=== PATIENT | female | born 1985 | race Caucasian/White ===

== ENCOUNTER 2019-09-21 12:48 | Emergency (ER) | payer OTHER, SELFPAY ==
[2019-09-21 12:57] VITALS: BP 131/77; PULSE 117; RESP 20; TEMP 38.1; O2SAT 99
--- NOTE | 2019-09-21 13:14 | ED.URI ---
HPI - URI/Sore Throat General Chief Complaint: Upper Respiratory Infection Stated Complaint: cough/sore throat/ear pain/sinus issues Time Seen by Provider: 09/21/19 13:15 Source: patient Mode of arrival: ambulatory Limitations: no limitations History of Present Illness HPI Narrative: Brenden Tanner is a 33 yo female with a prior medical history of PCOS who came to our urgent care with coughing, fever, body aches, difficulty swallowing, nasal congestion for the past 5 days. Did not get a flu vaccine. Had vomiting that stopped 2 days ago Related Data Allergies Allergy/AdvReac Type Severity Reaction Status Date / Time clarithromycin Allergy Unknown Verified 07/24/13 11:06 Sulfa (Sulfonamide Allergy Unknown Verified 07/24/13 11:06 Antibiotics) Review of Systems Review of Systems: Narrative: CONSTITUTIONAL: has fever, chills, sweats. EYES: Denies visual changes, redness, discharge. ENT: has rhinorrhea, congestion, sore throat, no otalgia. CARDIOVASCULAR: Denies chest pain, palpitations, edema. RESPIRATORY: Denies dyspnea, wheezing, dry cough GASTROINTESTINAL: Denies abdominal pain, nausea, vomiting, diarrhea. GENITOURINARY: Denies dysuria, hematuria, abnormal discharge SKIN: Denies rash or itching. MUSCULOSKELETAL: Denies acute back pain, joint pain, or myalgia. NEUROLOGIC: Denies numbness, or focal weakness. PSYCHIATRIC: Denies anxiety or depression. [facility] Family History Family History (Updated 09/21/19 @ 13:18 by Emilia Haley CNP) Other No active medical problems Social History Social History (Updated 09/21/19 @ 13:18 by Emilia Haley CNP) Smoking status: Never smoker Alcohol intake: never Comments At time of signature, I agree with nursing past medical, surgical, social and family history. There is no relevant family history pertinent to the presenting complaint. Exam Narrative: Exam Narrative: GENERAL: This is a well-nourished, well-developed patient, febrile, in moderate distress. HEAD: normocephalic, atraumatic. EYES: Sclera clear/white. Vision is grossly intact. EARS: External ears normal, auditory canals erythema and without drainage, TMs normal without perforation. Hearing grossly intact. NOSE: External nose normal with nasal discharge, nares with redness, has rhinorrhea. THROAT: Mucous membranes moist, posterior pharynx erythema, no edema NECK: Neck supple, non-tender without lymphadenopathy, CARDIOVASCULAR: Tachycardic and rhythm without murmurs, gallops, or rubs. RESPIRATORY: Clear to auscultation. Breath sounds equal bilaterally. No wheezes, rales, or rhonchi. GASTROINTESTINAL: Abdomen soft, non-tender, nondistended. SKIN: warm, intact with no suspicious lesions or rash, good texture and turgor. NEURO: awake, alert, and oriented to person, place and time. There were no obvious focal neurologic abnormalities. Steady gait EXTREMITIES: Normal range of motion. No edema. BACK: Nontender without deformity or crepitance. Course Course Emergency Course: Toradol IM for fever and pain Started on prednisone Mucinex and codeine cough syrup. Flonase, Claritin. Discussed hydration rotation of Tylenol and ibuprofen for temperature myalgia. Vital Signs Vital signs: Vital Signs Temperature 100.6 F H 09/21/19 12:57 Pulse Rate 117 H 09/21/19 12:57 Respiratory Rate 09/21/19 12:57 Blood Pressure 131/77 09/21/19 12:57 Pulse Oximetry 99 09/21/19 12:57 Temperature 100.6 F H 09/21/19 12:57 Pulse Rate 117 H 09/21/19 12:57 Respiratory Rate 20 09/21/19 12:57 Blood Pressure 131/77 09/21/19 12:57 Pulse Oximetry 99 09/21/19 12:57 MDM - URI/Sore Throat Differential Diagnosis Differential diagnosis: Likely upper respiratory infection, sinusitis and influenza Discharge Plan Discharge Clinical Impression: Upper respiratory infection Qualifiers: URI type: unspecified viral URI Qualified Code(s): J06.9 - Acute upper respiratory infection, unspecified Con
[2019-09-21] MEDS: KETOROLAC (*BKC) 60 MG/2 ML VIAL IM (13:21)
== END 2019-09-21 14:01 | disposition home or self-care (01) ==
PROVIDERS: Emergency Provider Nurse Practitioner
DX: J06.9 Acute upper respiratory infection, unspecified (principal); E28.2 Polycystic ovarian syndrome; J45.990 Exercise induced bronchospasm
CPT/HCPCS: 96372; 99213; G0463; J1885

== ENCOUNTER 2019-12-11 17:47 | Emergency (ER) | payer OTHER, SELFPAY ==
--- NOTE | ~2019-12-11 | CT_ITS ---
EXAMINATION: CT cervical spine [facility] EXAM DATE: 12/11/2019 18:54 INDICATION: Neck pain radiating down right arm. TECHNIQUE: Spiral CT of the cervical spine was performed without contrast. Axial images were reviewe d. Coronal and sagittal reformatted images were also reviewed. The dose-length product (DLP) for thi s examination was 557.99 mGy-cm. The exposure was tailored according to patient size (auto mA exposu re control), and iterative reconstruction (ASIR) was used as additional dose reduction technique. ere is no prior study for comparison. FINDINGS: There is moderate reversal of the normal cervical lordosis which may be positional or spasm . The vertebral bodies are aligned in the AP dimension. Vertebral body and disc heights are well-main tained. There are no acute fractures identified. The odontoid process is intact. The lateral masses of C1 line up with C2. Paraspinal soft tissue is unremarkable. Level by level evaluation: C2-C3: Disc does not extend beyond the endplate margin. Uncovertebral joint arthropathy: Mild bilateral. Facet joint arthropathy: Mild to moderate right, mild left. Neural foraminal stenosis: Mild to moderate right, mild left. Central canal stenosis: No stenosis. C3-C4: Disc does not extend beyond the endplate margin. Uncovertebral joint arthropathy: Mild to moderate right, mild left. Facet joint arthropathy: Mild bilateral. Neural foraminal stenosis: Moderate right, mild to moderate left. Central canal stenosis: No stenosis. C4-C5: Disc does not extend beyond the endplate margin. Uncovertebral joint arthropathy: Mild bilateral. Facet joint arthropathy: Minimal bilateral. Neural foraminal stenosis: No stenosis. Central canal stenosis: No stenosis. C5-C6: Disc does not extend beyond the endplate margin. Uncovertebral joint arthropathy: None. Facet joint arthropathy: None. Neural foraminal stenosis: No stenosis. Central canal stenosis: No stenosis. C6-C7: Disc does not extend beyond the endplate margin. Uncovertebral joint arthropathy: None. Facet joint arthropathy: None. Neural foraminal stenosis: No stenosis. Central canal stenosis: No stenosis. C7-T1: Disc does not extend beyond the endplate margin. Uncovertebral joint arthropathy: None. Facet joint arthropathy: None. Neural foraminal stenosis: No stenosis. Central canal stenosis: No stenosis. IMPRESSION: 1. Reversal of normal cervical lordosis, consider spasm. 2. Upper cervical predominant arthropathy with up to moderate right neural foraminal stenosis, at th e C3-4 level. Reviewed, dictated and finalized at location A. IMPRESSION: 1. Reversal of normal cervical lordosis, consider spasm. 2. Upper cervical predominant arthropathy with up to moderate right neural for aminal stenosis, at the C3-4 level.
[2019-12-11 17:51] VITALS: BP 132/83; PULSE 101; RESP 20; TEMP 36.2; O2SAT 100
--- NOTE | 2019-12-11 19:14 | ED.GENADULT ---
HPI - General Adult General Chief complaint: Extremity Injury, Upper Stated complaint: R ARM PAIN Time Seen by Provider: 12/11/19 17:59 Source: patient and family Mode of arrival: ambulatory Limitations: no limitations History of Present Illness HPI narrative: Patient is a 34-year-old female who presents to emergency department for evaluation of right-sided trapezius pain radiating to the right hand with some numbness in the third through fifth digits patient has been seeing her chiropractor and notes minimal improvement patient does not have a primary care doctor order patient notes that the pain is worse with range of motion of the upper extremity denies similar occurrence in the past denies injury or trauma patient on arrival to emergency department is in no distress. Patient denies other complaints at this time Related Data Home Medications Medication Instructions Recorded Confirmed metformin mg 12/11/19 Allergies Allergy/AdvReac Type Severity Reaction Status Date / Time clarithromycin Allergy Unknown Itching Verified 12/11/19 17:54 Sulfa (Sulfonamide Allergy Unknown Itching Verified 12/11/19 17:54 Antibiotics) Review of Systems Review of Systems: All systems reviewed & are unremarkable except as noted in HPI and below PMFSH Past Medical History Medical History (Updated 12/11/19 @ 19:25 by Mika Ni PA-C) Polycystic ovaries Family History Family History (Updated 09/21/19 @ 13:18 by Emilia Haley CNP) Other No active medical problems Social History Social History Smoking status: Never smoker Alcohol intake: never Exam Narrative: Exam Narrative: GENERAL: Well-appearing, obese, and in no acute distress. HEAD: Normocephalic, atraumatic. EYES: PERRLA and EOMI. ENT: Nares clear, no rhinorrhea or epistaxis. Mucous membranes moist. Oropharynx without tonsillar hypertrophy exudate or other lesions. NECK: Supple. No adenopathy or masses. CHEST: Clear to auscultation. No respiratory distress. No wheezes rales or rhonchi HEART: Regular rate and rhythm. No murmur heard. Normal peripheral pulses. EXTREMITIES: Normal range of motion. No edema. No midline cervical tenderness to palpation. Tenderness of the right trapezius musculature with spasming SKIN: Warm, dry, no rash. NEURO: No focal deficits. Alert and oriented x3. Cranial nerves II through XII grossly intact. Neurovascularly intact. Motor and sensory intact and symmetrical in the upper extremities. PSYCH: Normal mood and affect. Course Course Emergency Course: Patient in the room aware of case findings treatment plan and diagnosis agreeing to follow-up as directed Vital Signs Vital signs: Vital Signs Temperature 97.2 F L 12/11/19 17:51 Pulse Rate 101 H 12/11/19 17:51 Respiratory Rate 20 12/11/19 17:51 Blood Pressure 132/83 12/11/19 17:51 Pulse Oximetry 100 12/11/19 17:51 Temperature 97.2 F L 12/11/19 17:51 Pulse Rate 101 H 12/11/19 17:51 Respiratory Rate 20 12/11/19 17:51 Blood Pressure 132/83 12/11/19 17:51 Pulse Oximetry 100 12/11/19 17:51 Medical Decision Making MDM Narrative Medical decision making narrative: Patient in the room aware of case findings treatment plan and diagnosis agreeing to follow-up with primary care for further evaluation of her cervical radiculopathy. Patient with no focal neurologic deficits felt appropriate for outpatient reevaluation. Patient will be started on muscle relaxers and anti-inflammatories. Patient provided with reasons to return and agrees to do so if symptoms worsen. Patient provided with primary care agreeing to follow-up primary care for reevaluation and possible discussion of referral to specialty services Vital Signs Vital Signs: Vital Signs Temperature 97.2 F L 12/11/19 17:51 Pulse Rate 101 H 12/11/19 17:51 Respiratory Rate 20 12/11/19 17:51 Blood Pressure 132/83 05/0
[2019-12-11] MEDS: KETOROLAC (*BKC) 60 MG/2 ML VIAL IM (19:28)
[2019-12-11] MEDS: DIAZEPAM 5 MG TABLET PO (19:28)
== END 2019-12-11 19:35 | disposition home or self-care (01) ==
PROVIDERS: Emergency Provider Emergency Medicine
DX: M54.12 Radiculopathy, cervical region (principal); E28.2 Polycystic ovarian syndrome
CPT/HCPCS: 72125; 96372; 99284; A9270; J1885

== ENCOUNTER 2023-03-27 12:18 | Emergency (ER) | payer OTHER, SELFPAY ==
[2023-03-27 12:28] VITALS: BP 130/85; PULSE 102; RESP 18; TEMP 36.2; O2SAT 99
--- NOTE | 2023-03-27 12:36 | ECG_ITS ---
Measurements Intervals [place] Rate: 95 P: 37 [place]: 175 QRS: 30 QRSD: 90 T: 52 QT: 358 QTc: 452 Interpretive Statements SINUS RHYTHM LOW QRS VOLTAGE IN PRECORDIAL LEADS [QRS DEFLECTION < 1.0 mV IN CHEST LEADS] POOR R-WAVE PROGRESSION BORDERLINE ECG NO PREVIOUS ECG AVAILABLE FOR COMPARISON Electronically Signed On 03-28-2023 7:23:33 CDT by Chemo Trejo M.D.
--- NOTE | 2023-03-27 12:45 | ED.ARRPALP ---
HPI - Arrhythmia/Palpitations General Chief Complaint: Arrhythmia/Palpitations Stated Complaint: heart palpatations Time Seen by Provider: 03/27/23 12:45 Source: patient Mode of arrival: ambulatory Limitations: no limitations History of Present Illness HPI narrative: Patient presents to the emergency department with a sensation of an abnormal heartbeat. Patient states that she works nights, and this morning upon getting home she noticed a sensation of an abnormal beat that was isolated to a single beat, which she has never been evaluated for in the past, prompting her to come seek care. Patient denies lightheadedness, chest pain, shortness of breath, dizziness, abdominal pain, nausea, vomiting, diarrhea, numbness, weakness, history of abnormal heart rhythms, supplement use, medication use, changes in caffeine intake. Patient has felt slightly more tired as of late without any specific association to today. Patient denies vaginal bleeding or blood in her stool. Patient denies fever. Patient states that she has felt sensation in the past and she will experience it approximately 1 to 2 times every year since she was about 19 years old. Patient states the sensation lasted approximately one second, and described it as a single beat that felt off. Patient has not associated anything with bringing on the symptoms nor making it go away, admits to approximately two episodes since last night. Related Data Home Medications Medication Instructions Recorded Confirmed control BYMOUTH 03/31/23 03/31/23 metformin 850 mg tablet 850 mg PO BID 03/31/23 03/31/23 multivitamin 1 tablet PO DAILY 03/31/23 03/31/23 omeprazole 20 mg capsule,delayed 20 mg PO DAILY PRN 03/31/23 03/31/23 release Allergies Allergy/AdvReac Type Severity Reaction Status Date / Time clarithromycin Allergy Unknown Itching Verified 12/11/19 17:54 Sulfa (Sulfonamide Allergy Unknown Itching Verified 12/11/19 17:54 Antibiotics) Review of Systems Review of Systems: A 10 system review of systems was completed on the patient and is negative except for what is stated in the HPI. Nursing and ancillary documentation was reviewed. [facility] Past Medical History Medical History (Updated 03/31/23 @ 14:27 by Jackelyn Dueñas NP) Allergies Anemia Anemia Chronic headaches Elevated BP without diagnosis of hypertension Encounter to establish care Morbid obesity with BMI of 40.0-44.9, adult Palpitations PCOS (polycystic ovarian syndrome) Polycystic ovaries Surgical History Surgical History (Updated 03/31/23 @ 13:28 by Lacie Parker MA) History of section (~2017) History of tonsillectomy Family History Family History (Updated 03/31/23 @ 13:29 by Lacie Parker MA) Mother Ovarian cancer Heart disease Hypertension Cerebrovascular accident Thyroid disorder Sibling Depression Thyroid disorder Grandparent Diabetes mellitus Hypertension Heart disease Cerebrovascular accident Other No active medical problems Social History Social History (Updated 03/31/23 @ 13:41 by Lacie Parker MA) Smoking status: Never smoker Alcohol intake: never Substance use: never Substance use type: does not use Lack of Transportation: No Lack of Food: Never True Current Housing: I Have Housing Concerned About Future Housing: No Difficulty Paying Gas/Electric Bills: No Difficulty Paying for Meds: No Currently Unemployed: No Education: Trade/Vocational Certificate Difficulty w/ Childcare or Family Care: No Comments At time of signature, I have reviewed and agree with nursing past medical, surgical, social and family history unless otherwise noted. Please see the nursing chart for further information. There is no relevant family history pertinent to the presenting complaint. Exam Narrative: CONST: No acute distress. Well nourished. HENMT: Head is normocephalic and atraumatic. Moist mucous membranes. No posterior or
[2023-03-27 13:30] VITALS: BP 137/88; PULSE 94; RESP 20; O2SAT 99
== END 2023-03-27 13:31 | disposition home or self-care (01) ==
PROVIDERS: Emergency Provider Student in an Organized Health Care Education/Training Program
DX: R00.2 Palpitations (principal)
CPT/HCPCS: 93005; 99283

== ENCOUNTER 2023-04-14 09:38 | Outpatient (CLI) | payer OTHER, SELFPAY ==
--- NOTE | 2023-04-15 15:43 | WPDHOLTEREM ---
Holter/Event Monitor Holter/Event Monitor Date of procedure: 04/14/23 Holter/Event Procedure: 24 Hr Holter Monitor Indications: Palpitations Conclusion: 1. 24 hour holter monitor on 04/14/23. 2. Underlying rhythm is sinus rhythm. HR range 55-158 bpm; average HR 84 bpm. HR at 158 bpm was at 15:30. 3. There are 5 premature supraventricular complexes. No supraventricular tachycardia. 4. There are 2,266 premature ventricular complexes and 9 ventricular trigeminy. No ventricular tachycardia. 5. No sinoatrial or atrioventricular blocks. No significant pauses greater than 2 seconds. 6. No symptoms available for correlation.
== END 2023-04-14 09:39 | disposition home or self-care (01) ==
PROVIDERS: Visit Provider Family Medicine
DX: R00.2 Palpitations (principal)
CPT/HCPCS: 93225; 93226

== ENCOUNTER 2023-07-22 10:52 | Outpatient (CLI) | payer OTHER, SELFPAY ==
[2023-07-22 11:38] LABS: Hematocrit 38.5 % (37.0-47.0); Hemoglobin 12.1 g/dL (12.0-15.0)
== END 2023-07-22 10:53 | disposition home or self-care (01) ==
PROVIDERS: Anesthesiology; PCP Nurse Practitioner Family; Referring Provider Obstetrics & Gynecology; Visit Provider Internal Medicine
DX: D64.9 Anemia, unspecified (principal); I49.3 Ventricular premature depolarization; R00.2 Palpitations; N92.0 Excessive and frequent menstruation with regular cycle
CPT/HCPCS: 36415; 84443; 85014; 85018; 86850; 86900; 86901

== ENCOUNTER 2023-07-27 00:21 | Day surgery (SDC) | payer OTHER, SELFPAY ==
--- NOTE | 2023-07-21 18:14 | PC.NURSE ---
Report to the Outpatient Waiting Room, entrance under the green pavilion located off [facility], at time 1030 on date 07/27/23. Planned Procedure Time: 1230. Time changes happen often and if your time is changed the preop area will call you the afternoon before. - You and your visitor will be asked to self-screen and do not enter if you have any COVID symptoms. - A mask is optional within the hospital at this time. Patients may have clear liquids (water, carbonated beverages, clear teas, apple juice) until 3 hours prior to surgery with a maximum of 20 ounces. 0930 - No food from midnight until time of surgery - Infants may have breast milk until 4 hours before surgery, formula 6 hours prior to surgery. - Children will be allowed to drink immediately following surgery. If applicable, please bring a bottle or sippy cup to assist with drinking. Juice, water, soda, and popsicles are readily available. For infants on formula, please bring formula the day of surgery. Pacifiers are allowed. Take the following medications with a SIP of water the morning of surgery: control DO NOT STOP ANY OF YOUR OTHER PRESCRIPTION MEDICATIONS PRIOR TO SURGERY ?EXCEPT THE FOLLOWING Medications to discontinue per physician vitamins & supplements, metformin Date to take last dose vitamins & supplements 07/24/23, metformin 07/26/23 Please no make-up, nail pashto, hairspray, perfume, deodorant, or body powder the day of surgery. No jewelry (including any body piercings) or valuables the day of surgery, leave them at home. Please take a shower or bath the night before, or the morning of, surgery with an antibacterial soap. Wear comfortable, loose fitting clothing. Children are encouraged to wear pajamas. - Jewelry must be removed prior to entering the operating room. Rings and piercings that are not removed may be cut off. - The hospital will not accept responsibility for valuables. - Please leave all valuables, including medications, at home the day of surgery. If you are going home after surgery, a licensed mechanic driver must drive you home. - NO public transportation without another adult if you receive anesthesia. - We recommend that an adult stay with you for 24 hours following discharge. - We also recommend that you do not drive, make important decision, drink alcoholic beverages, or take any drugs that were not prescribed by your health care provider for at least 24 hours after your discharge time. For Pediatric surgeries, we recommend two adults accompany the child home. Follow any additional instructions given to you from your surgeon. If you or anyone in your household have experienced Covid symptoms in the past week, please notify your surgeon or the nurse liaison at the phone number below for possible testing. Telephone instructions given to Patient- Brenden Tanner and asked if any additional questions and then verbalized understanding. Patient advised to call surgeon office or pre surgery nurse liaison [phone] if any additional questions.
[2023-07-21 18:20] VITALS: BMI 43.3
[2023-07-27] VITALS (10 sets, daily range): BP systolic 127–149; BP diastolic 80–96; PULSE 87–103; RESP 16–20; TEMP 36.2–36.7; O2SAT 93–100
[2023-07-27] MEDS: LACTATED RINGERS 1,000 ML 30 ML IV CONT ×2 (10:47→14:38)
[2023-07-27] MEDS: ACETAMINOPHEN 500 MG TABLET 1000 MG PO (10:48)
[2023-07-27] MEDS: SCOPOLAMINE 1 MG PATCH 1 PATCH TRANSDERM (10:48)
[2023-07-27] MEDS: KETOROLAC 15 MG/ML VIAL (*BKC) IV PUSH ×2 (10:48→15:20)
--- NOTE | 2023-07-27 11:31 | WPDANESEPPF ---
Anes - Initial Pre Proc Eval Procedure: Operation Date: 07/27/23 12:30 Proposed Procedures p Total Laparoscopic Hysterectomy with Bilateral Salpingectomy - Tenisha Bob MD Date/Time: 07/27/23 11:31 Surgeon: Tenisha Bob MD Pre Op Diagnosis: menorrhagia Patient Data Age: 37 Gender: F Height: 1.65 m Weight: 117.9 kg Last Vital Signs Temp 36.4 C 07/27/23 10:17 Pulse 87 07/27/23 10:17 Resp 16 07/27/23 10:17 BP 149/84 H 07/27/23 10:17 Pulse Ox 100 07/27/23 10:17 O2 Del Method Room Air 07/27/23 10:17 Allergies Allergy/AdvReac Type Severity Reaction Status Date / Time clarithromycin Allergy Unknown Itching Verified 07/27/23 10:54 Sulfa (Sulfonamide Allergy Unknown Itching Verified 07/27/23 10:54 Antibiotics) Home Medications Medication Instructions Recorded Confirmed Type metformin 850 mg tablet 850 mg PO BID 03/31/23 07/27/23 History multivitamin 1 tablet PO DAILY 03/31/23 07/27/23 History ferrous sulfate 142 mg (45 mg 142 mg PO DAILY 04/19/23 07/27/23 History iron) tablet,extended release (Slow Fe) norethindrone acetate 1 mg-ethinyl 1 tablet PO DAILY 07/21/23 07/27/23 History estradiol 20 mcg tablet Patient hx anesthesia problems: none Family hx anesthesia problems: none Results Review: All pre-operative results and documents have been reviewed as part of the pre-operative evaluation. [facility] Past Medical History Medical History Allergies Anemia Anemia Chronic headaches Elevated BP without diagnosis of hypertension Encounter to establish care Frequent PVCs Iron deficiency anemia Morbid obesity with BMI of 40.0-44.9, adult Palpitations PCOS (polycystic ovarian syndrome) Polycystic ovaries Symptomatic PVCs Ventricular trigeminy Surgical History Surgical History History of section (~2017) History of tonsillectomy Family History Family History Mother Ovarian cancer Heart disease Hypertension Cerebrovascular accident Thyroid disorder Sibling Depression Thyroid disorder Grandparent Diabetes mellitus Hypertension Heart disease Cerebrovascular accident Other No active medical problems Social History Social History Smoking status: Never smoker Alcohol intake: never Substance use: never Substance use type: does not use Lack of Transportation: No Lack of Food: Never True Current Housing: I Have Housing Concerned About Future Housing: No Difficulty Paying Gas/Electric Bills: No Difficulty Paying for Meds: No Currently Unemployed: No Education: Trade/Vocational Certificate Difficulty w/ Childcare or Family Care: No Spiritual care concerns: No Anes - Eval Final PreProcedure Day of Procedure 07/27/23 11:31 Patient weight: morbidly obese Heart: regular rate and rhythm Lungs: clear to auscultation Airway: Mallampati scale class II Neurological: alert and oriented Last oral intake: >/= 8 hours ASA classification: III Emergent: no Anesthetic plan: proceed Anesthesia type and monitoring: general ETT and standard monitoring Results Review: All pre-operative results and documents have been reviewed as part of the pre-operative evaluation. Informed Consent: The patient's anesthetic plan and its attendant risks and benefits were discussed with the patient/family/POA. Questions were solicited and answers provided to the satisfaction of the patient/family/POA.
--- NOTE | 2023-07-27 11:53 | WPDHPUPDATE1 ---
History and Physical Update Update Date/Time: 07/27/23 11:53 History and Physical has been reviewed, including an updated exam of the patient. There are NO changes in the patient's condition. Risks, benefits, and alternatives have been discussed and questions answered. Patient agrees to proceed with procedure.
--- NOTE | 2023-07-27 12:02 | P.OP_ITS ---
Procedure Note - Detailed Date of Procedure 07/27/23 Pre-op Diagnosis menorrhagia Post-op Diagnosis Same Procedure Performed Total laparoscopic hysterectomy. bilateral salpingectomy Surgeon Tenisha Bob MD Anesthesia General Indications menorrhagia Findings vascular parametrium, a moderately enlarged uterus, normal-appearing tubes and ovaries. Description of Procedure This patient was taken to the operating room. She was prepped and draped in the dorsal lithotomy position after induction of general anesthesia. The uterine manipulator and Ashley cup were placed. This was done with a speculum and tenaculum. The speculum was placed. The cervix was grasped with a tenaculum. The stay sutures were placed at 3 and 9:00 a.m.. The stay sutures of 0 Vicryl were brought through the appropriately sized Ashley cup. The tip of the SAY manipulator was placed in the intrauterine cavity. The cup was slid into place around the cervix and into the fornices. It was locked into place. The sutures were then wrapped around the handle and tied under tension. A 5 mm skin incision was made in the left upper quadrant the abdomen. A 5 mm trocar was inserted into the intrauterine cavity under direct visualization of the scope. Pneumoperitoneum was achieved. A left lower quadrant 11 mm incision was made with scalpel. An 11 mm trocar was inserted into the anterior abdominal cavity under direct visualization the scope. A 5 mm infraumbilical incision was made with a scalpel and a 5 mm trocar was inserted the intra-abdominal cavity under direct visualization of the scope. Bilateral ureteral lysis was performed. This was done from the pelvic brim down to the uterine artery. This was done with careful dissection using sharp and blunt dissection. The fallopian tubes were removed bilaterally. The mes osalpinx around the fallopian tubes were cauterized transected with LigaSure cautery. This was done in a bilateral fashion from the ovary to the uterine cornua. The fallopian tube was transected at the uterine cornu and amputated. The tube was taken out the left lower quadrant trocar site. In a stepwise fashion along the lateral aspects of the uterus the round ligament and broad ligaments were cauterized transected down to the level of the uterine arteries. A bladder flap was created in the bladder was moved distally to the end of the cervix and over the Ashley cup. The bilateral uterine arteries were cauterized and transected. Colpotomy was then performed. In a circumferential fashion the vagina was transected using unipolar cautery. The incision was made down on the Ashley cup. The uterus and cervix were taken out through the vagina. A pneumo occluder was placed in the vagina. The vaginal cuff was closed with a 0 V lock suture in a running fashion. The pelvis was irrigated with copious amounts antibiotic irrigation. The ureters were again examined and found to be intact and flowing freely under the uterine arteries into the bladder. The bladder was intact. It was examined directly. The vagina was irrigated with Betadine solution after removal of the Pneumo occluder. The patient was taken to recovery room. She was stable condition. Sponge lap and needle counts were correct x2. Drains Yes Packing No Pathology Yes Complications No immediate complications Condition Stable Disposition Floor
--- NOTE | 2023-07-27 12:18 | PM.IMHP ---
H&P: HPI History of Present Illness Date/Time: 07/27/23 12:18 Chief Complaint: menorrhagia Narrative: this patient is a 37-year-old female with severe menorrhagia. We have agreed to perform total laparoscopic hysterectomy and bilateral salpingectomy. She understands the procedure in great detail. She understands risk in detail. She understands injuries may occur that result in hospitalization, more surgery and severe illness. She understands risk of hemorrhage and infection. She denies any nausea, vomiting, fever, chills. She denies any chest pain or shortness of breath. Review of Systems Review of Systems: All systems reviewed & are unremarkable except as noted in HPI and below Constitutional: Constitutional: Denies chills, Denies fatigue, Denies fever(s) and Denies weakness Eyes: Eyes: Denies blurry vision, Denies change in vision, Denies loss of peripheral vision, Denies loss of vision, Denies other visual disturbances and Denies eye pain ENT: Denies vertigo, Denies dizziness, Denies hearing loss, Denies mouth pain, Denies nasal obstruction, Denies neck mass and Denies neck pain Cardiovascular: Cardiovascular: Denies chest pain, Denies diaphoresis, Denies syncope, Denies leg edema and Denies dyspnea Respiratory: Respiratory: Denies chest congestion, Denies cough, Denies hemoptysis, Denies dyspnea and Denies wheezing Gastrointestinal: Gastrointestinal: Denies abdominal pain, Denies constipation, Denies diarrhea, Denies nausea and Denies vomiting Genitourinary: Genitourinary: Denies hematuria, Denies change in libido, Denies nocturia, Denies genital lesions, Denies flank pain and Denies urinary urgency Musculoskeletal: Musculoskeletal: Denies abnormal gait, Denies back pain, Denies myalgias, Denies arthralgias, Denies joint swelling, Denies muscle weakness and Denies neck pain Integumentary/Breasts: Skin/Breast: Denies swelling, Denies breast pain, Denies breast mass, Denies dry skin, Denies nipple discharge, Denies unusual bruising and Denies jaundice Neurologic: Denies Neuro-related abnormal movements, Denies Abnormal speech present, Denies abnormal gait, Denies behavioral changes, Denies confusion, Denies vertigo, Denies dizziness, Denies syncope, Denies loss of vision, Denies memory loss, Denies convulsions and Denies weakness Psychiatric: Psychiatric: Denies abnormal sleep pattern, Denies behavioral changes, Denies change in libido, Denies confusion, Denies depression, Denies anhedonia and Denies memory loss Endocrine: Endocrine: Reports no additional endocrine complaints, Denies change in libido and Denies fatigue Hematologic/Lymphatic: Hematologic/Lymphatic: Reports no additional hematologic/lymphatic complaints Allergic/Immunologic: Allergic/Immunologic: Reports no additional allergic/immunologic complaints and Denies wheezing PMFSH Past Medical History Medical History Allergies Anemia Anemia Chronic headaches Elevated BP without diagnosis of hypertension Encounter to establish care Frequent PVCs Iron deficiency anemia Morbid obesity with BMI of 40.0-44.9, adult Palpitations PCOS (polycystic ovarian syndrome) Polycystic ovaries Symptomatic PVCs Ventricular trigeminy Surgical History Surgical History History of section (~2017) History of tonsillectomy Family History Family History Mother Ovarian cancer Heart disease Hypertension Cerebrovascular accident Thyroid disorder Sibling Depression Thyroid disorder Grandparent Diabetes mellitus Hypertension Heart disease Cerebrovascular accident Other No active medical problems Social History Social History Smoking status: Never smoker Alcohol intake: never Substance use: never Substance use type: does not use L
[2023-07-27] MEDS: ceFAZolin 2 GM/D5W 50 ML 2 GM/50 ML BAG IVPB (12:24)
[2023-07-27] MEDS: ceFAZolin SODIUM 1 GM VIAL (13:09)
[2023-07-27] MEDS: ONDANSETRON INJ 4 MG/2 ML VIAL IV PUSH (14:55)
[2023-07-27] MEDS: diphenhydrAMINE HCl INJ 50 MG/ML VIAL 25 MG IV PUSH (15:22)
[2023-07-27] MEDS: IBUPROFEN 600 MG TABLET PO (16:59)
--- NOTE | 2023-07-27 17:09 | OBPPTRN ---
Patient transferred to post room #285 via bed at 1615. Oriented to unit, room, information board, rooming in, admission packet and security measures. Patient verbalizes understanding.
[2023-07-27] MEDS: DEXTROSE 5%/0.45% SOD CHL 1,000 ML 125 ML IV CONT (17:16)
[2023-07-27] MEDS: METOCLOPRAMIDE HCL INJ 10 MG/2 ML VIAL (18:41)
[2023-07-27] MEDS: HYDROmorphone HCL INJ (*CRX) 1 MG/ML SYR IV PUSH ×2 (18:51→23:52)
[2023-07-27] MEDS: METOCLOPRAMIDE HCL INJ 10 MG/2 ML VIAL IV PUSH (23:52)
[2023-07-28 00:06] VITALS: BP 130/76; PULSE 104; RESP 18; TEMP 36.8; O2SAT 92
[2023-07-28 05:45] VITALS: BP 115/78; PULSE 104; RESP 18; TEMP 37.7
[2023-07-28] MEDS: HYDROcodone/acetaminophen (*CRX) 5-325 MG TABLET 1 TAB PO (06:02)
[2023-07-28] MEDS: METOCLOPRAMIDE HCL INJ 10 MG/2 ML VIAL IV PUSH (07:19)
[2023-07-28 07:30] VITALS: BP 117/71; PULSE 103; RESP 18; TEMP 37.3; O2SAT 95
--- NOTE | 2023-07-28 07:37 | WPDANLDPN2 ---
Anes-Prog Note L&D Date/Time: 07/28/23 07:37 Comfortable throughout: labor and delivery Neuraxial method: epidural Epidural/Spinal procedure site: clean & non-tender Neuro status: Neuro function grossly intact. Cardiovascular status: normal Respiratory status: normal Airway patency: baseline Mental status: baseline Post-Op hydration status: normal Vital Signs: Last Vital Signs Temp 99.8 F H 07/28/23 05:45 Pulse 104 H 07/28/23 05:45 Resp 18 07/28/23 05:45 BP 115/78 07/28/23 05:45 Pulse Ox 95 07/27/23 20:05 O2 Del Method Room Air 07/27/23 20:05 O2 Flow Rate 10 07/27/23 14:45 Pain score (VAS): 0/10 I/O: Intake & Output 07/27/23 07/27/23 07/28/23 15:59 23:59 07:59 Intake Total 50 1140 Output Total 160 200 Balance -110 940 Post-procedural complaints: none Patient feedback: Patient satisfied with anesthetic care.
--- NOTE | 2023-07-28 08:08 | PM.GYNPNOP ---
ADMINISTRATIVE JOB TITLES - A/P Postoperative Procedures: Procedures Operation Date: 07/27/23 12:30 Actual Procedure Side Surgeon p Total Laparoscopic Hysterectomy with Bilateral Salpingectomy Bilateral R. Hermelindo Bob MD Postoperative day: 1 Postoperative status: doing well and other (Tollerating Regular Diet) Postoperative plan: routine post-op care and discharge Time Spent With Patient Time: Total time spent is greater than 50% in coordination of care (as documented) at patient's floor/unit and/or counseling patient: Time with patient: 15 - 25 minutes ADMINISTRATIVE JOB TITLES- PN:Subj Post-Op Subjective Date/time seen: 07/28/23 08:08 Subjective: patient reports feeling better, pain is well controlled and patient is tolerating oral intake Exam Const: General: cooperative, healthy appearing, comfortable and no acute distress Resp: Auscultation: no crackles, no rales, no rhonchi and no wheezes Cardio: Rhythm: regular rhythm Heart sounds: no click and no murmurs GI: Inspection: non-distended Auscultation: normal bowel sounds Other: Incisions - CDI Extrem: General: normal to inspection, no pedal edema and no calf tenderness ADMINISTRATIVE JOB TITLES - PN: Obj Data Vital Signs Vital Signs: Vital Signs - 24 hr 07/27/23 10:17 07/27/23 14:38 07/27/23 14:45 Temperature 97.6 F 97.2 F L Pulse Rate 87 102 H 103 H Respiratory Rate 16 17 17 Blood Pressure 149/84 H 127/82 129/91 H Pulse Oximetry 100 98 100 Oxygen Delivery Room Air Simple Face Mask Simple Face Mask Oxygen Flow Rate 10 10 07/27/23 15:00 07/27/23 15:15 07/27/23 15:30 Temperature Pulse Rate 103 H 103 H 96 Respiratory Rate 19 20 19 Blood Pressure 135/87 133/96 H 140/90 Pulse Oximetry 96 93 93 Oxygen Delivery Room Air Room Air Room Air Oxygen Flow Rate 07/27/23 15:45 07/27/23 16:00 07/27/23 16:25 Temperature 97.7 F Pulse Rate 95 95 91 Respiratory Rate 18 20 18 Blood Pressure 130/80 131/87 131/96 H Pulse Oximetry 93 93 94 Oxygen Delivery Room Air Room Air Oxygen Flow Rate 07/27/23 20:05 07/27/23 20:05 07/28/23 05:45 Temperature 98.0 F 99.8 F H Pulse Rate 99 99 104 H Respiratory Rate 16 16 18 Blood Pressure 141/87 H 115/78 Pulse Oximetry 95 95 Oxygen Delivery Room Air Oxygen Flow Rate Intake/Output Intake/Output: Intake & Output 07/25/23 07/26/23 07/27/23 07/28/23 23:59 23:59 23:59 23:59 Intake Total 1190 Output Total 360 Balance 830 Meds/Results Medications: Active Medications Generic Name Dose Route Start Last Admin Trade Name Freq PRN Reason Stop Dose Admin Hydrocodone Bitart/Acetaminophen 1 tab 07/27/23 16:09 07/28/23 06:02 Hydrocodone/Acetaminophen (*Crx) 5-325 Mg Tablet PO 1 tab Q3H PRN Administration Pain Rated 5 or Less Hydrocodone Bitart/Acetaminophen 1 tab 07/27/23 16:09 Hydrocodone/Acetaminophen (*Crx) 10-325 Mg Tablet PO Q3H PRN Pain Rated 6 or Greater Fentanyl Citrate 50 mcg 07/27/23 18:30 Fentanyl Citrate Inj (*Crx) 100 Mcg/2 Ml Vial IV PUSH Q2H RADHA Ferrous Sulfate 142 mg 07/28/23 09:00 Ferrous Sulfate Dried 142 Mg Tabcr PO DAILY RADHA Hydromorphone HCl 1 mg 07/27/23 18:29 07/27/23 23:52 Hydromorphone Hcl Inj (*Crx) 1 Mg/Ml Syr IV PUSH 1 mg Q4H PRN Administration Pain Rated 7-10 Dextrose/Sodium Chloride 1,000 mls @ 125 mls/hr 07/27/23 16:09 07/27/23 17:16 Dextrose 5% Sodium Chloride 0.45% IV CONT 125 mls/hr .Q8H RADHA Administration Ibuprofen 600 mg 07/27/23 16:09 07/27/23 16:59 Ibuprofen 600 Mg Tablet PO 600 mg Q6H PRN Administration Cramping Ketorolac Tromethamine 30 mg 07/27/23 16:09 Ketorolac 30 Mg/Ml Vial (*Bkc) IV PUSH 08/01/23 16:08 Q6H PRN Pain Rated 4-6 Metformin HCl 850 mg 07/27/23 17:00 07/27/23 17:55 Metformin Hcl 850 Mg Tablet PO Not Given BID RADHA Metoclopramide HCl 10 mg 07/28/23 00:00 07/28/23 07:19 Metoclopramide Hcl Inj 10 Mg/2 Ml Vial IV PUSH 10 mg Q6HR RADHA A
== END 2023-07-28 11:48 | disposition home or self-care (01) ==
LOC: ANHSURGERY 12:33 → ANHOB2 16:10
PROVIDERS: PCP Nurse Practitioner Family; Visit Provider Obstetrics & Gynecology
PROC: 0UT9FZZ Resection of Uterus, Via Natural or Artificial Opening With Percutaneous Endoscopic Assistance (ICD-10-PCS; CPT 58571; principal; 2023-07-27 12:30)
DX: N92.0 Excessive and frequent menstruation with regular cycle (principal); N85.2 Hypertrophy of uterus; N83.8 Other noninflammatory disorders of ovary, fallopian tube and broad ligament; R51.9 Headache, unspecified; D50.9 Iron deficiency anemia, unspecified; E28.2 Polycystic ovarian syndrome; E66.01 Morbid (severe) obesity due to excess calories; Z68.41 Body mass index [BMI] 40.0-44.9, adult; Z79.84 Long term (current) use of oral hypoglycemic drugs; Z86.79 Personal history of other diseases of the circulatory system; Z82.49 Family history of ischemic heart disease and other diseases of the circulatory system; Z80.41 Family history of malignant neoplasm of ovary
CPT/HCPCS: 58571; 36415; 84443; 85014; 85018; 86850; 86900; 86901; 88307; 99199; A9270; J0690; J1100; J1170; J1200; J1885; J1940; J2250; J2371; J2405; J2704; J2765; J3010; J7030; J7120

== ENCOUNTER 2023-07-30 08:43 | Inpatient (IN) | payer OTHER, SELFPAY ==
[2023-07-30] VITALS (31 sets, daily range): BP systolic 114–172; BP diastolic 66–99; PULSE 78–112; RESP 12–23; TEMP 36.8–37.4; O2SAT 92–100
--- NOTE | ~2023-07-30 | CT_ITS ---
EXAMINATION: CT abdomen pelvis w con DATE: 07/30/2023 10:49 INDICATION: Recent hysterectomy. Right low back pain. TECHNIQUE: Computed tomography (CT) of the abdomen and pelvis was performed with 100 cc Omnipaque 350 intravenous contrast. The dose-length product was 1564.05 mGy-cm. Automated exposure control and ite rative reconstruction technique were employed. COMPARISON: None. FINDINGS: There is moderate right hydroureteronephrosis. There is delayed right nephrogram. No obstru cting stone or mass is seen. There is right perinephric/periureteral edema. Small amount of free flui d in the pelvis. Small fat-containing umbilical hernia. There is bilateral lower lobe atelectasis. He art size normal. Small pericardial effusion. No significant pleural effusion. The liver, spleen, pancreas, adrenal glands and left kidney are unremarkable. No acute osseous abnorm ality. Nonobstructive bowel gas pattern. No significant vascular abnormality. Gallbladder is present. No lymphadenopathy. No free air. IMPRESSION: 1. Moderate right hydroureteronephrosis with perinephric and periureteral edema. No obstructing stone or mass is identified. 2: Small pericardial effusion. 3: Bilateral lower lobe atelectasis. Reviewed, dictated and finalized at location A. LED BEVERAGE INSPECTOR IMPRESSION: 1. Moderate right hydroureteronephrosis with perinephric and periureteral edema . No obstructing stone or mass is identified. 2: Small pericardial effusion. 3: Bilateral lower lobe atelectasis.
--- NOTE | ~2023-07-30 | XR_ITS ---
XR retrograde pyelogram RT 07/30/2023 13:58 Indication: Right retrograde pyelogram TECHNIQUE: Fluoroscopy used during right retrograde pyelogram performed by [Perry Sherman MD] on 07/30/2023. 33 seconds of fluoroscopy time with 2 fluoroscopic images captured. FINDINGS: Correlate with procedure note. IMPRESSION: Fluoroscopy used during right pyelogram. Please refer to procedural report. Reviewed, dictated and finalized at location A. DRY ATTENDANT
--- NOTE | 2023-07-30 09:08 | ED.BACK ---
HPI - Back Pain/Injury General Chief Complaint: Back Pain/Injury <GERALDO Ventura Last Filed: 07/30/23 14:23> Stated Complaint: back pain <GERALDO Ventura Last Filed: 07/30/23 14:23> Time Seen by Provider: 07/30/23 08:52 <GERALDO Ventura Last Filed: 07/30/23 14:23> Source: patient and old records reviewed <GERALDO Ventura Last Filed: 07/30/23 14:23> Mode of arrival: ambulatory <GERALDO Ventura Last Filed: 07/30/23 14:23> Limitations: no limitations <GERALDO Ventura Last Filed: 07/30/23 14:23> History of Present Illness HPI Narrative: Patient is a 37-year-old female who presents ED with report of right lower back pain. Patient reports she underwent total laparoscopic hysterectomy w/ tejinder salpingectomy on 07/[address] Bob. She states she developed pain throughout her right lower back last night, which has been constant and progressively worsening since then. No alleviating factors. She has tried taking [place] at home without improvement. Pain does occasionally radiate around her abdomen and across her her left lower back. She also reports cramping throughout her lower abdomen, nausea, subjective fever, mild dysuria. Denies hematuria, vaginal bleeding, vomiting, chest pain, shortness of breath, cough. <GERALDO Ventura Last Filed: 07/30/23 14:23> Related Data Home Medications: Home Medications Medication Instructions Recorded Confirmed metformin 850 mg tablet 850 mg PO BID 03/31/23 07/30/23 multivitamin 1 tablet PO DAILY 03/31/23 07/30/23 ferrous sulfate 142 mg (45 mg 142 mg PO DAILY 04/19/23 07/30/23 iron) tablet,extended release (Slow Fe) norethindrone acetate 1 mg-ethinyl 1 tablet PO DAILY 07/21/23 07/30/23 estradiol 20 mcg tablet <GERALDO Ventura Last Filed: 07/30/23 14:23> Allergies/Adverse Reactions: Allergies Allergy/AdvReac Type Severity Reaction Status Date / Time clarithromycin Allergy Unknown Itching Verified 07/30/23 08:55 Sulfa (Sulfonamide Allergy Unknown Itching Verified 07/30/23 08:55 Antibiotics) <María Duran PA-C - Last Filed: 07/30/23 14:23> Review of Systems Review of Systems: CONSTITUTIONAL: See HPI. ENT: Denies rhinorrhea, congestion, sore throat. CARDIOVASCULAR: Denies chest pain, palpitations, or edema. RESPIRATORY: Denies cough or dyspnea. GASTROINTESTINAL: See HPI. GENITOURINARY: Denies dysuria or hematuria. MUSCULOSKELETAL: See HPI. NEUROLOGIC: Denies headache, dizziness, numbness, or weakness. <María Duran PA-C - Last Filed: 07/30/23 14:23> All systems reviewed & are unremarkable except as noted in HPI and below <María Duran PA-C - Last Filed: 07/30/23 14:23> [facility] Past Medical History Medical History: Medical History Allergies Anemia Anemia Chronic headaches Elevated BP without diagnosis of hypertension Encounter to establish care Frequent PVCs Iron deficiency anemia Morbid obesity with BMI of 40.0-44.9, adult Palpitations PCOS (polycystic ovarian syndrome) Polycystic ovaries Symptomatic PVCs Ventricular trigeminy <María Duran PA-C - Last Filed: 07/30/23 14:23> Surgical History Surgical History: Surgical History History of section (~2017) History of tonsillectomy <María Duran PA-C - Last Filed: 07/30/23 14:23> Family History Family History: Family History Mother Ovarian cancer Heart disease Hypertension Cerebrovascular accident Thyroid disorder Sibling Depression Thyroid disorder Grandparent Diabetes mellitus Hypertension Heart disease Cerebrovascular accident Other No active medical problems <María Yi
[2023-07-30 09:24] LABS: Basophils Percent Auto 0.3 % (0.2-1.2); Eosinophils Absolute Auto 0.1 K/mm3 (0-0.3); Eosinophils Percent Auto 1.2 % (0-4.4); Hematocrit 34.1 % (37.0-47.0); Hemoglobin 10.4 g/dL (12.0-15.0); Immature Granulocyte Absolute 0.04 K/mm3 (0.00-0.031); Immature Granulocyte Percent A 0.4 % (0-0.5); Lymphocytes Absolute Auto 1.23 K/mm3 (0.9-3.2); Lymphocytes Percent Auto 13.4 % (18.3-44.2); Mean Corpuscular HGB Conc 30.5 g/dl (32-36); Mean Corpuscular Hemoglobin 23.5 pg (26-34); Mean Corpuscular Volume 77.1 fl (80-100); Mean Platelet Volume 10.5 fl (7.4-10.4); Monocytes Absolute Auto 0.8 K/mm3 (0.1-0.6); Monocytes Percent Auto 8.2 % (2.6-8.5); Neutrophils Percent Auto 76.5 % (45.5-73.1); Platelet Count Result 285 k/mm3 (150-375); Red Blood Count 4.42 M/mm3 (4.2-5.4); Red Cell Distribution Width 16.6 % (11.5-14.5); White Blood Count 9.2 K/mm3 (4.5-10.0)
[2023-07-30] MEDS: SODIUM CHLORIDE 0.9% IV 1,000 ML 999 ML IV CONT ×2 (09:30→10:07)
[2023-07-30] MEDS: ONDANSETRON INJ 4 MG/2 ML VIAL IV PUSH ×2 (09:31→15:05)
[2023-07-30] MEDS: MORPHINE SULFATE (*CRX) 4 MG/ML INJ IV PUSH ×2 (09:32→17:59)
[2023-07-30 09:44] LABS: Alanine Aminotransferase 16 U/L (6-35); Albumin Level 3.4 g/dL (3.5-5.1); Alkaline Phosphatase 58 U/L (38-126); Anion Gap 9 mmol/L (8-16); Aspartate Amino Transferase 19 U/L (14-36); Bilirubin,Total 0.4 mg/dL (0.2-1.3); Blood Urea Nitrogen 13 mg/dL (7-17); Calcium 8.4 mg/dL (8.4-10.2); Carbon Dioxide 24 mmol/L (22-30); Chloride 103 mmol/L (98-107); Estimated CRCL calculation 64 ml/min; Estimated Glomerular Filt Rate 43; Glucose 97 mg/dL (65-110); Lipase 51 U/L (23-300); Potassium 3.5 mmol/L (3.4-5.0); Sodium 136 mmol/L (137-145)
[2023-07-30 10:13] LABS: Appearance Urine Cloudy (Clear); Bacteria Urine None Seen /hpf; Bilirubin Urine Negative (Negative); Blood Urine Negative (Negative); Color Urine Dark Yellow (Yellow); Glucose Urine UA Negative (Negative); Ketones Urine Trace mg/dL (Negative); Leukocyte Esterase Ur Negative LEU/UL (Negative); Nitrate Urine Negative (Negative); Non Pathogenic Casts 0-2; Protein Urine 1+ mg/dL (Negative); RBC Urine 0-2 /hpf (0-2); Specific Grav Ur 1.033 (1.001-1.035); Squamous Epithelial Cell Urine Many /hpf (Few); WBC Urine 0-5 /hpf
[2023-07-30 10:15] LABS: Add Urine Microscopic? YES
[2023-07-30] MEDS: HYDROmorphone HCL INJ (*CRX) 1 MG/ML SYR 0.5 MG IV PUSH (11:59)
--- NOTE | 2023-07-30 12:16 | WPDURCON ---
Assessment and Plan Assessment and plan (1) Hydronephrosis, right: Code(s): N13.30 - Unspecified hydronephrosis Status: Acute Plan Given patient's recent surgery, now with right hydroureter, delayed nephrogram, and elevated Cr, there is concern for some degree of ureteral obstruction, etiology remains unclear. PLAN: -NPO status will drive timing of procedure, but patient stands to benefit from cystoscopy, right retrograde pyelogram, right ureteral stent placement -- if unable to pass/place a stent, then would benefit from IR placing a right nephrostomy tube. -R/B/A discussed and she agrees to proceed Urology Consult Note HPI Date Seen: 07/30/23 Requesting Physician: Dr Bob Primary Care Provider: Jackelyn Dueñas, WAGNER Consult Narrative Narrative: Brenden Tanner is a 37 year old female who had recent hysterectomy on Tuesday, currently in the ER with flank/abdominal pain and CT showing delayed nephrogram on the RIGHT with hydroureter down into the pelvis near the UVJ without evidence of a stone, clip, and without a large amount of pelvic fluid. Cr 1.4 Urology asked to evaluate for potential need of a cysto, right RGP/Stent placement, and if unable to place, the need for IR to place a right nephrostomy tube. Patient in a bit of discomfort currently, last solid PO intake (cracker) was 7:30 this AM Hct 36, WBC 7 UA nit neg, LE neg, no RBC Review of Systems Review of Systems: All systems reviewed & are unremarkable except as noted in HPI and below PMFSH Past Medical History Medical History Allergies Anemia Anemia Chronic headaches Elevated BP without diagnosis of hypertension Encounter to establish care Frequent PVCs Iron deficiency anemia Morbid obesity with BMI of 40.0-44.9, adult Palpitations PCOS (polycystic ovarian syndrome) Polycystic ovaries Symptomatic PVCs Ventricular trigeminy Surgical History Surgical History History of section (~2017) History of tonsillectomy Family History Family History Mother Ovarian cancer Heart disease Hypertension Cerebrovascular accident Thyroid disorder Sibling Depression Thyroid disorder Grandparent Diabetes mellitus Hypertension Heart disease Cerebrovascular accident Other No active medical problems Social History Social History Smoking status: Never smoker Alcohol intake: never Substance use: never Substance use type: does not use Lack of Transportation: No Lack of Food: Never True Current Housing: I Have Housing Concerned About Future Housing: No Difficulty Paying Gas/Electric Bills: No Difficulty Paying for Meds: No Currently Unemployed: No Education: Trade/Vocational Certificate Difficulty w/ Childcare or Family Care: No Spiritual care concerns: No Meds Home Medications and Allergies Home Medications Medication Instructions Recorded Confirmed Type metformin 850 mg tablet 850 mg PO BID 03/31/23 07/27/23 History multivitamin 1 tablet PO DAILY 03/31/23 07/27/23 History ferrous sulfate 142 mg (45 mg 142 mg PO DAILY 04/19/23 07/27/23 History iron) tablet,extended release (Slow Fe) norethindrone acetate 1 mg-ethinyl 1 tablet PO DAILY 07/21/23 07/27/23 History estradiol 20 mcg tablet oxycodone-acetaminophen 5 mg-325 1 tablet PO Q4H PRN pain #25 tabs 07/27/23 Rx mg tablet Allergies Allergy/AdvReac Type Severity Reaction Status Date / Time clarithromycin Allergy Unknown Itching Verified 07/30/23 08:55 Sulfa (Sulfonamide Allergy Unknown Itching Verified 07/30/23 08:55 Antibiotics) Vital Signs Vital Signs - 24 hr 07/30/23 08:49 07/30/23 08:55 07/30/23 09:35 Temperature 37.4 C Pulse Rate 112 H 95 94 Respiratory
--- NOTE | 2023-07-30 12:51 | P.OP_ITS ---
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 The patient was brought back to the operative suite and a detailed timeout was performed.? Anesthesia was induced without complication.? The patient was administered IV antibiotics in the prophylactic form.? The patient was positioned in the dorsal lithotomy position with close attention to all pressure points and was prepped and draped in sterile fashion. We began the case using a rigid cystoscope to gain access into the bladder under direct visualization per urethra. Cystoscopy was unremarkable. We turned our attention to the right ureteral orifice and cannulated it using a 5 [place] open-ended ureteral catheter and sensor wire.? The sensor wire would not pass beyond the first couple centimeters into the ureter, concerning for obstruction. I performed a retrograde pyelogram, and contrast extravasated medially at the distal right ureter, but did not pass into the more proximal ureter, also concerning for obstruction. To gain a better appreciation of the distal ureter, I elected to perform a quick diagnostic ureteroscopy. Using a 7Fr rigid ureteroscope, I traversed the right UO, and quickly (2-3cm in) was not able to advance the scope further -- it appeared the lumen of the ureter was completely occluded. I performed a diagnostic retrograde pyelogram through the scope, and again no contrast passed proximally, but it did extravasate medially. At this time, it was clear that I would not be able to successfully pass a wire or stent across the distal ureter, so I elected to cease my efforts at this time. PLAN: -PACU, Admit for pain control -IR will be needed for placement of right nephrostomy tube, ideally within 24 hours -Discussed with Dr. Bob as well Signal Worker, to assist with post-op placement and furthering getting her kidney unobstructed via nephrostomy tube -Patient will likely need eventual elective outpatient urologic intervention in the form of a right ureteral reimplant This note was created with the assistance of voice-recognition software and may contain phonetic errors. Estimated Blood Loss 0
--- NOTE | 2023-07-30 13:06 | WPDHPUPDATE1 ---
History and Physical Update Update Date/Time: 07/30/23 13:06 History and Physical has been reviewed, including an updated exam of the patient. There are NO changes in the patient's condition. Risks, benefits, and alternatives have been discussed and questions answered. Patient agrees to proceed with procedure.
--- NOTE | 2023-07-30 13:23 | WPDANESEPPF ---
Anes - Initial Pre Proc Eval Procedure: Operation Date: 07/30/23 13:30 Proposed Procedures p Cysto, RPG, Stone Ext, Stent Placement(Right) - Perry Sherman MD Date/Time: 07/30/23 13:23 Surgeon: Perry Sherman MD Pre Op Diagnosis: URETER REPAIR Patient Data Age: 37 Gender: F Height: 1.65 m Weight: 117 kg Last Vital Signs Temp 37.4 C 07/30/23 08:49 Pulse 78 07/30/23 13:13 Resp 16 07/30/23 13:13 BP 127/76 07/30/23 12:07 Pulse Ox 96 07/30/23 13:13 O2 Del Method Room Air 07/30/23 08:49 Allergies Allergy/AdvReac Type Severity Reaction Status Date / Time clarithromycin Allergy Unknown Itching Verified 07/30/23 08:55 Sulfa (Sulfonamide Allergy Unknown Itching Verified 07/30/23 08:55 Antibiotics) Home Medications Medication Instructions Recorded Confirmed Type metformin 850 mg tablet 850 mg PO BID 03/31/23 07/27/23 History multivitamin 1 tablet PO DAILY 03/31/23 07/27/23 History ferrous sulfate 142 mg (45 mg 142 mg PO DAILY 04/19/23 07/27/23 History iron) tablet,extended release (Slow Fe) norethindrone acetate 1 mg-ethinyl 1 tablet PO DAILY 07/21/23 07/27/23 History estradiol 20 mcg tablet oxycodone-acetaminophen 5 mg-325 1 tablet PO Q4H PRN pain #25 tabs 07/27/23 Rx mg tablet Laboratory Tests 07/30/23 07/30/23 09:17 10:05 WBC 9.2 K/mm3 (4.5-10.0) RBC 4.42 M/mm3 (4.2-5.4) Hgb 10.4 L g/dL (12.0-15.0) Hct 34.1 L % (37.0-47.0) MCV 77.1 L fl (80-100) MCH 23.5 L pg (26-34) MCHC 30.5 L g/dl (32-36) RDW 16.6 H % (11.5-14.5) Plt Count 285 k/mm3 (150-375) MPV 10.5 H fl (7.4-10.4) Immature Gran % (Auto) 0.4 % (0-0.5) Neut % (Auto) 76.5 H % (45.5-73.1) Lymph % (Auto) 13.4 L % (18.3-44.2) Benson % (Auto) 8.2 % (2.6-8.5) Eos % (Auto) 1.2 % (0-4.4) Baso % (Auto) 0.3 % (0.2-1.2) Lymph # (Auto) 1.23 K/mm3 (0.9-3.2) Benson # (Auto) 0.8 H K/mm3 (0.1-0.6) Eos # (Auto) 0.1 K/mm3 (0-0.3) Baso # (Auto) 0.0 K/mm3 (0.0-0.1) Abs Immat Gran (auto) 0.04 H K/mm3 (0.00-0.031) Absolute Neuts (auto) 7.0 H K/mm3 (1.3-6.7) Absolute Nucleated RBC 0.0 K/mm3 (0.0-0.012) Nucleated RBC % 0.0 % (0.0-0.2) Sodium 136 L mmol/L (137-145) Potassium 3.5 mmol/L (3.4-5.0) Chloride 103 mmol/L (98-107) Carbon Dioxide 24 mmol/L (22-30) Anion Gap 9 mmol/L (8-16) BUN 13 mg/dL (7-17) Creatinine 1.40 H mg/dL (0.7-1.0) Estim Creat Clear Calc 64 ml/min Estimated GFR 43 L (59 - ) Glucose 97 mg/dL (65-110) Calcium 8.4 mg/dL (8.4-10.2) Total Bilirubin 0.4 mg/dL (0.2-1.3) AST 19 U/L (14-36) ALT 16 U/L (6-35) Alkaline Phosphatase 58 U/L (38-126) Total Protein 7.0 g/dL (6.3-8.2) Albumin 3.4 L g/dL (3.5-5.1) Lipase 51 U/L (23-300) Urine Color Dark yellow (Yellow) Urine Appearance Cloudy H (Clear) Urine pH 6.0 (5.0-9.0) Ur Specific Perry 1.033 (1.001-1.035) Urine Protein 1+ H mg/dL (Negative) Urine Glucose (UA) Negative mg/dL (Negative) Urine Ketones Trace H mg/dL (Negative) Ur Blood (Man) Negative (Negative) Urine Nitrate Negative (Negative) Urine Bilirubin Negative (Negative) Urine Urobilinogen 1.0 mg/dL (<2.0) Leukocyte Esterase Rfl Negative JAN/UL (Negative) Urine RBC 0-2 /hpf (0-2) Urine WBC 0-5 /hpf Ur Squamous Epith Cells Many H /hpf (Few) Urine Bacteria None seen /hpf Urine Casts 0-2 Patient hx anesthesia problems: post op nausea/vomiting Family hx anesthesia problems: none Results Review: All pre-operative results and documents have been reviewed as part of the pre-operative ev
[2023-07-30] MEDS: LACTATED RINGERS 1,000 ML 30 ML IV CONT (13:58)
[2023-07-30] MEDS: ceFAZolin 1 GM/NS 50 ML 1 GM/50 ML BAG IVPB (14:05)
[2023-07-30] MEDS: fentaNYL CITRATE INJ (*CRX) 100 MCG/2 ML VIAL 25 MCG IV PUSH ×5 (15:06→21:46)
--- NOTE | 2023-07-30 16:47 | ADMGEN ---
This patient, Brenden Tanner, was admitted to [facility] Surg Room 302-01. Patient/family oriented to hospital policies and general routines including ID bracelet, bed and alarms, visiting hours, pain management, procedures, bathroom and other care routines, personal items, smoking policy, room service/diet, and visiting hours. Information on how to activate the Rapid Response Team has been discussed. Patient/Family are encouraged to report perceived risks to care and to ask questions if they do not understand what they are told or what they should do. Jenniffer Marshall called upon patients arrival to the floor per patients request for pain medication. Verbal order given
[2023-07-30] MEDS: METOCLOPRAMIDE HCL INJ 10 MG/2 ML VIAL IV PUSH (17:59)
--- NOTE | 2023-07-30 18:24 | PC.NURSE ---
Patient to transfer to [place] on night assistant.
--- NOTE | 2023-07-30 18:52 | PM.IMCN ---
Assessment and Plan Assessment and plan (1) Hydronephrosis, right: Code(s): N13.30 - Unspecified hydronephrosis Status: Acute Assessment and Plan: CT showed: 1. Moderate right hydroureteronephrosis with perinephric and periureteral edema. No obstructing stone or mass is identified. 2: Small pericardial effusion. 3: Bilateral lower lobe atelectasis. Urology consulted from ED - MD Lane. Patient taken to OR for Diagnostic ureteroscopy (right) and Cystoscopy, Right Retrograde Pyelogram. 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 Recommended that patient be transferred for IR, not currently available here, for placement of right nephrostomy tube (ideally within 24 hours). She will likely need eventual elective outpatient urological intervention in the form of a right ureteral reimplant. Patient was accepted at [facility] by Arash RYAN (Urology). Awaiting transfer. Continue antiemetics and pain control in interim. TYL for fevers and pain. (2) History of hysterectomy: Code(s): Z90.710 - Acquired absence of both cervix and uterus Status: Acute Assessment and Plan: Recent total hysterectomy and salpingectomy (bilat) on 07/28. Paulino RYAN notified of patient return and admitted under his service. (3) Iron deficiency anemia: Code(s): D50.9 - Iron deficiency anemia, unspecified Status: Acute Assessment and Plan: Hgb 12.1 on 07/22/23, currently 10.4. Was previously 10.3 in March of this year. No active bleeding identified by patient and recently underwent surgery. Will continue to monitor. Plan Diet: NPO with ice chips until transfer GI Prophylaxis: Not currently indicated DVT Prophylaxis: SCDs, hold pharmacological Lines: pIV Code Status: Full Code I personally spent 45 minutes of direct patient care including (but not limited to) the physical examination, decision-making, bedside evaluation, review of medical records, review of labs and imaging, discussion with nursing staff and other providers for collaborative care management of this patient. Awaiting ambulance for transport as of 07/31 00:03, bed assigned. HPI Date of Consult Consult date: 07/31/23 Requesting Physician: Perry Sherman MD Primary Care Provider: Jackelyn Dueñas NP Consult Narrative Reason for consult: Pain Managment Narrative: Brenden Tanner is a 37 year old female who presented here with lower back pain with PMH of recent hysterectomy, anemia, allergies, elevated BP without diagnosis of hypertension, SAM, PCOS, and ventricular trigeminy. Patient had total laparoscopic hysterectomy with bilateral salpingectomy on 07/28 without immediate postop complication. Operation performed due to severe menorrhagia. Returned to the ED today due to severe right lower back pain without radiation. Pain acutely began last night and progressively worsened. Pain accompanied by nausea, subjective fever, and mild dysuria. No associated hematuria, vomiting, chest pain, shortness a breath, cough, or palpitations. Took Coolin overnight without improvement. ED workup revealed normal WBC at 9.2, stable hemoglobin, creatinine of 1.4, and UA not suggestive of UTI. CT of the abdomen pelvis was performed which showed moderate right hydroureteronephrosis with perinephritic and periureteral edema. No obstructing stone or mass identified. Small pericardial effusion. Bilateral lower lobe atelectasis. Urology was thus consulted and patient underwent diagnostic ureteroscopy, cystoscopy, and right retrograde pyelogram. 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 Post-procedure patient reports continued right flank pain without radiation to her abdomen. No current nausea but frequently experiences this with pain medication administration. No other current
--- NOTE | 2023-07-30 22:18 | PC.NURSE ---
Called report to [facility] [phone]. Gave report to [facility] for patient to go to Room 69A. All questions answered.
[2023-07-31] MEDS: ACETAMINOPHEN 325 MG TABLET 650 MG PO (02:00)
--- NOTE | 2023-08-03 23:06 | PM.TDS ---
Transfer Discharge Sum: Prov Provider Date of admission: 07/30/23 14:37 Primary care physician: Jackelyn Dueñas NP Admitting clinician: Tenisha Bob MD Attending physician on admission: Tenisha Bob Consults: 07/30/23 Consult to Physician Routine Comment: hospitalist Consulting Provider: Jenniffer Bob Reason for consultation: pain management Has provider been notified: Yes Consult to Physician Routine Comment: urology Consulting Provider: Perry Sherman Reason for consultation: flank pain Has provider been notified: Yes Attending physician on discharge: Tenisha Bob Discharging clinician: Jenniffer Bob Anticipated date of transfer: 07/30/23 Receiving physician/facility: Accepted by Arash RYAN at [facility] for urology services and IR. DS: Admitting Diagnosis Discharge Date 07/31/23 Admitting Diagnosis Hydronephrosis, right DS: Discharge Diagnosis Discharge Diagnosis Plan Hydronephrosis, right Transfer Discharge Sum: Med Medications Active and Home Medications: Home Medications metformin 850 mg tablet 850 mg PO BID 03/31/23 [History Confirmed 07/30/23] multivitamin 1 tablet PO DAILY 03/31/23 [History Confirmed 07/30/23] ferrous sulfate 142 mg (45 mg iron) tablet,extended release (Slow Fe) 142 mg PO DAILY 04/19/23 [History Confirmed 07/30/23] norethindrone acetate 1 mg-ethinyl estradiol 20 mcg tablet 1 tablet PO DAILY 07/21/23 [History Confirmed 07/30/23] oxycodone-acetaminophen 5 mg-325 mg tablet 1 tablet PO Q4H PRN pain #25 tabs 07/27/23 [Rx Confirmed 07/30/23] Transfer Discharge Sum: Hosp Hospital Course Hospital course: Brenden Tanner is a 37 year old female who presented here with lower back pain with PMH of recent hysterectomy, anemia, allergies, elevated BP without diagnosis of hypertension, SAM, PCOS, and ventricular trigeminy. Patient had total laparoscopic hysterectomy with bilateral salpingectomy on 07/28 without immediate postop complication.? Operation performed due to severe menorrhagia.? Returned to the ED today due to severe right lower back pain without radiation.? Pain acutely began last night and progressively worsened.? Pain accompanied by nausea, subjective fever, and mild dysuria.? No associated hematuria, vomiting, chest pain, shortness a breath, cough, or palpitations. Took Willis overnight without improvement.? ED workup revealed normal WBC at 9.2, stable hemoglobin, creatinine of 1.4, and UA not suggestive of UTI.? CT of the abdomen pelvis was performed which showed moderate right hydroureteronephrosis with perinephritic and periureteral edema.? No obstructing stone or mass identified.? Small pericardial effusion.? Bilateral lower lobe atelectasis.? Urology was thus consulted and patient underwent diagnostic ureteroscopy, cystoscopy, and right retrograde pyelogram.? 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 Post-procedure patient reports continued right flank pain without radiation to her abdomen.? No current nausea but frequently experiences this with pain medication administration.? No other current complaints. Left in stable condition. Time Spent with Patient Time attestation: Total time spent providing and/or coordinating transfer services: 20 minutes. Total time spent: Less than 30 minutes Exam Narrative: Stable condition. Const:?? General: no acute distress and uncomfortable HENMT:?? Face/Nose/Sinus: Normal nares present? Mouth: Yes moist mucous membranes Eyes:?? General: appearance normal, both eyes and all related structures? Sclera: sclerae normal? Pupils: Equal, round and reactive pupils present? EOM: EOMs intact bilaterally Resp:?? Effort & Inspection: normal respiratory effort? Auscultation: clear to auscultation bilaterally Cardio:?? Rate: regular rate? Rhythm: regular rhythm? Other: S1-S2 present without murmur, rub, ectop
== END 2023-07-31 02:30 | disposition short-term general hospital (02) | DRG 699 ==
LOC: ANHED 09:19 → ANHSURGERY 12:59 → ANHED 15:07 → ANHSURGERY 15:07 → ANH3MEDSUR 08-03 15:28
PROVIDERS: Urology; Admitting Provider Obstetrics & Gynecology; Emergency Provider Physician Assistant; PCP Nurse Practitioner Family; Visit Provider Student in an Organized Health Care Education/Training Program
PROC: 0TJ98ZZ Inspection of Ureter, Via Natural or Artificial Opening Endoscopic (ICD-10-PCS; CPT 52352; principal; 2023-07-30 13:30)
DX: N99.89 Other postprocedural complications and disorders of genitourinary system (principal); I31.39 Other pericardial effusion (noninflammatory); N13.30 Unspecified hydronephrosis; J98.11 Atelectasis; Z68.41 Body mass index [BMI] 40.0-44.9, adult; D50.9 Iron deficiency anemia, unspecified; E66.01 Morbid (severe) obesity due to excess calories; Z90.710 Acquired absence of both cervix and uterus; Z90.722 Acquired absence of ovaries, bilateral
CPT/HCPCS: 36415; 74177; 74420; 80053; 81001; 81025; 83690; 85025; 88307; 96361; 96365; 96375; 99199; 99285; A9270; C1758; C1769; J0690; J1100; J1170; J1200; J1885; J1940; J2250; J2270; J2371; J2405; J2704; J2765; J3010; J7030; J7120; Q9966; Q9967

== ENCOUNTER 2024-04-12 09:16 | Outpatient (CLI) | payer OTHER, SELFPAY ==
[2024-04-12 10:18] LABS: Add Urine Microscopic? YES; Appearance Urine Clear (Clear); Bacteria Urine 3+ /hpf; Bilirubin Urine Negative (Negative); Blood Urine Non-Hemolyzed Trace (Negative); Color Urine Yellow (Yellow); Glucose Urine UA Negative (Negative); Ketones Urine Negative (Negative); Leukocyte Esterase Ur 2+ LEU/UL (Negative); Nitrate Urine Negative (Negative); Non Pathogenic Casts 0-2; Protein Urine Negative (Negative); Specific Grav Ur 1.018 (1.001-1.035); Squamous Epithelial Cell Urine Few /hpf (Few); Urobilinogen Urine 0.2 mg/dL (<2.0); WBC Urine 21-50 /hpf (0-3)
== END 2024-04-12 09:17 | disposition home or self-care (01) ==
LOC: ANHLAB 09:18
PROVIDERS: PCP Nurse Practitioner Family; Visit Provider Nurse Practitioner Family
DX: R30.0 Dysuria (principal)
CPT/HCPCS: 81001; 87086; 87088